=== PATIENT | male | born 1935 | race Hispanic/Latino ===

== ENCOUNTER 2018-11-27 07:47 | Day surgery (SDC) | payer MEDICARE ==
[~2018-11-27] VITALS: Ht 175.3 cm; Wt 69.4 kg
[~2018-11-27 07:47] MED LIST: ESOM40CA54 PO; FERS325 PO; METO-391 PO; SODIUM CHLORIDE 0.9% 1000ML 1,000 ML IV ONE
[2018-11-27 08:24] VITALS: BP 143/84
[2018-11-27 09:11] LABS: BASOPHILS % (AUTO) 0.9 % (0.0-5.0); EOSINOPHILS % (AUTO) 4.8 % (0.0-8.0); HEMATOCRIT 37.3 % (42-54); LYMPHOCYTES % (AUTO) 25.2 % (21.0-51.0); MEAN CORPUSCULAR HGB CONC 34.1 g/dL (32.0-36.0); MEAN CORPUSCULAR VOLUME 93.6 fL (79-99); MONOCYTES % (AUTO) 9.6 % (3.0-13.0); NEUTROPHILS % (AUTO) 59.5 % (40.0-77.0); PLATELET COUNT (AUTO) 227 K/uL (130-400); RED BLOOD CELL COUNT(AUTO) 3.98 MIL/uL (4.50-6.20); RED CELL DISTRIBUTION WIDTH 14.1 % (11.0-15.5); WHITE BLOOD COUNT (AUTO) 5.7 K/uL (4.8-10.8)
[2018-11-27] MEDS ORDERED: MIRA50TA PO (09:22)
[2018-11-27] MEDS ORDERED: TRAM50TA4 PO (09:22)
[2018-11-27] MEDS ORDERED: TAMS-1 PO (09:22)
[2018-11-27] MEDS ORDERED: TORS10TA18 PO (09:22)
[2018-11-27] MEDS ORDERED: TYL3 PO (09:22)
[2018-11-27] MEDS ORDERED: CYAN250014 PO (09:22)
[2018-11-27] MEDS ORDERED: IBUP-2077 PO (09:22)
[2018-11-27] MEDS ORDERED: ERGO50CA PO (09:22)
[2018-11-27] MEDS ORDERED: FINA5TAB41 PO (09:22)
[2018-11-27 09:33] LABS: INR 1.01 (0.85-1.15); PROTHROMBIN TIME 10.6 SEC (9.6-11.6)
[2018-11-27] MEDS ORDERED: PROPOFOL 10 MG/ML 20ML VIAL IV ONE (09:49)
[2018-11-27 10:03] VITALS: BP 103/63
[2018-11-27 10:08] VITALS: BP 111/57
[2018-11-27 10:13] VITALS: BP 102/74
[2018-11-27 10:19] VITALS: BP 102/69
[2018-11-27 10:24] VITALS: BP 128/89
== END 2018-11-27 11:05 | disposition home or self-care (01) ==
LOC: ENDO 07:47 → DAH 07:47 → ENDO 11:05
PROVIDERS: ATTEND Internal Medicine
DX: K44.9 Diaphragmatic hernia without obstruction or gangrene (principal); K21.9 Gastro-esophageal reflux disease without esophagitis; D50.9 Iron deficiency anemia, unspecified; E78.5 Hyperlipidemia, unspecified; I48.91 Unspecified atrial fibrillation; Z79.899 Other long term (current) drug therapy; Z95.0 Presence of cardiac pacemaker; Z96.643 Presence of artificial hip joint, bilateral; Z98.890 Other specified postprocedural states; Z82.3 Family history of stroke
CPT/HCPCS: 36415; 43235; 85025; 85610; 93005; A4606; J2704; J7030; 43239